=== PATIENT | female | born 1945 | race African-American/Black ===

== ENCOUNTER 2016-08-26 19:55 | Emergency (ER) | payer MEDICARE, OTHER ==
[2016-08-26 19:47] LABS: INFLUENZA A NEG (NEG); INFLUENZA B NEG (NEG)
[~2016-08-26 19:55] MED LIST: ATENOLOL25 MG PO; DIOVAN320 MG PO; LIPITOR80 MG PO
== END 2016-08-26 20:14 | disposition home or self-care (01) ==
LOC: SED 19:55
PROVIDERS: Physician Assistant
DX: J32.9 Chronic sinusitis, unspecified (principal); I10 Essential (primary) hypertension; E78.5 Hyperlipidemia, unspecified
CPT/HCPCS: 87804; 99282